=== PATIENT | male | born 1980 | race American Indian/Alaskan Native ===

== ENCOUNTER 2016-09-06 06:14 | Emergency (ER) | payer BC ==
--- NOTE | 2016-09-06 09:33 | Emergency Department Report ---
Abscess Boil HPI - HPI Chief Complaint: Skin/Abscess/Foreign Body Stated Complaint: SORE ON BUTTOCKS Time Seen by Provider: 09/06/16 09:14 Duration: 4 Days Location: Sacral/Pilonidal Severity: Mild History: Yes Pain, Yes Purulent Drainage, Yes Previous History, No Fever, No Numbness, No Foreign Body, No Insect Bite HPI: 36-year-old male past medical history recurrent pilonidal abscess presents with complaint of approximately 3-4 days of an abscess forming in his sacral/ pilonidal region. Patient denies fever or chills does state he has pain and has noticed some purulent drainage from wound site already. States he has had these several times in the past Home Medications: Previous Rx's Medication Instructions Recorded Last Taken Type Ibuprofen [Motrin] 600 mg PO Q8H PRN #30 tablet 09/06/16 Unknown Rx Sulfamethoxazole/Trimethoprim 1 each PO BID #14 tablet 09/06/16 Unknown Rx [Bactrim DS TAB] Allergies/Adverse Reactions: Allergies Allergy/AdvReac Type Severity Reaction Status Date / Time No Known Allergies Allergy Unverified 09/06/16 07:30 ED Review of Systems ROS: Stated complaint: SORE ON BUTTOCKS Other details as noted in HPI Constitutional: denies: chills, fever Eyes: denies: eye pain, eye discharge, vision change ENT: denies: ear pain, throat pain Respiratory: denies: cough, shortness of breath, wheezing Cardiovascular: denies: chest pain, palpitations Endocrine: no symptoms reported Gastrointestinal: denies: abdominal pain, nausea, diarrhea Genitourinary: denies: urgency, dysuria Musculoskeletal: denies: back pain, joint swelling, arthralgia Skin: as per HPI. denies: rash, lesions Neurological: denies: headache, weakness, paresthesias Psychiatric: denies: anxiety, depression Hematological/Lymphatic: denies: easy bleeding, easy bruising ED Past Medical Hx - Past Medical History Previous Medical History?: Yes Hx Hypertension: Yes (no meds) - Surgical History Past Surgical History?: No - Social History Smoking Status: Current Every Day Smoker Substance Use Type: Alcohol, Non Opiate Pain - Medications Home Medications: Home Medications Medication Instructions Recorded Confirmed Last Taken Type Ibuprofen [Motrin] 600 mg PO Q8H PRN #30 tablet 09/06/16 Unknown Rx Sulfamethoxazole/Trimethoprim 1 each PO BID #14 tablet 09/06/16 Unknown Rx [Bactrim DS TAB] ED Abscess Boil Physical Exam - Exam General: Vital signs noted. No distress. Alert and acting appropriately. Front/Back of Body, Lg (Color): 1 - 3-4 cm diameter pilonidal abscess Size: 4 cm Exam: Yes Tenderness, Yes Fluctuance, Yes Surrounding Cellulites/Erythema, Yes Normal Neurologic Exam, Yes Normal Circulation, No Lymphangitis, No Crepitation , No Heart Murmur I & D Note - I & D Note I & D Note: Single abscess incised and buttock region pilonidal abscess, 2-3 mL of lidocaine used good anesthesia achieved, incision approximately 1 cm made along the fingers line, good decompression of abscess, packed with iodoform gauze then 4 x 4 gauze on top ED Course Vital Signs 09/06/16 07:30 Temperature 98 F Pulse Rate 107 H Respiratory 18 Rate Blood Pressure 155/106 O2 Sat by Pulse 96 Oximetry Critical Care Time: Yes Critical care time in (mins) excluding proc time.: 35 Critical care attestation.: If time is entered above; I have spent that time in minutes in the direct care of this critically ill patient, excluding procedure time. ED Medical Decision Making - Medical Decision Making A/P: Pilonidal abscess 1-incised and drained. Small amount of iodoform packing placed and swooned, patient instructed to remove packing within 12-24 hours. States he has this multiple times in the past with previous abscesses. 2-Bactrim DS twice a day 1 week 3-Motrin 600 when necessary 4- patient referred to dermatology as he states that he has had multiple abscesses in the past ED Disposition Clinical Impression: Pilonidal abscess Disposition: TO HOME OR SELFCARE Is pt being admited?: No Does the pt Need Aspirin: No Condition: Stable Instructions: Abscess Incision and Drainage (ED), Abscess (ED) Prescriptions: Ibuprofen [Motrin] 600 mg PO Q8H PRN #30 tablet PRN Reason: Pain Sulfamethoxazole/Trimethoprim [Bactrim DS TAB] 1 each PO BID #14 tablet Referrals: [facility] [Provider Group] - 3-5 Days Forms: Work/School Release Form(ED) Time of Disposition: 09:57
[2016-09-06 10:19] VITALS: BP 155/90
== END 2016-09-06 10:20 | disposition home or self-care (01) ==
LOC: ED 06:14
DX: L05.01 Pilonidal cyst with abscess (principal); I10 Essential (primary) hypertension; F17.200 Nicotine dependence, unspecified, uncomplicated